=== PATIENT | male | born 1965 | race Caucasian/White ===

== ENCOUNTER 2016-12-31 07:32 | Emergency (ER) | payer OTHER ==
[~2016-12-31] VITALS: Ht 190.5 cm; Wt 132.4 kg
[2016-12-31 08:20] LABS: Basophils # (auto) 0 uL; Basophils % (auto) 0.2 % (0.0-2.0); CONDITION Y; Eosinophils # (auto) 0 uL; Eosinophils % (auto) 0.1 % (0.0-7.0); Hematocrit 44.9 % (41.0-53.0); Hemoglobin 15.3 g/dL (13.5-17.5); Mean Corpuscular Hemoglobin 29.6 pg (28.0-32.0); Mean Corpuscular Hgb Conc. 34.1 g/dL (32.0-36.0); Mean Corpuscular Volume 86.7 fL (80.0-100.0); Mean Platelet Volume 7.8 fL (7.4-10.4); Monocytes # (auto) 0.8 uL; Monocytes % (auto) 5.8 % (0.0-12.0); Neutrophils # (auto) 12.7 uL; Neutrophils % (auto) 86.9 % (37.0-80.0); Platelet Count (auto) 324 10^3/uL (140-450); Red Cell Distribution Width 14.9 % (11.6-16.0); White Blood Cell 14.6 10^3/uL (4.4-10.8)
[2016-12-31 09:08] LABS: Albumin 3.9 g/dL (3.4-5.0); Alkaline Phosphatase 87 U/L (45-117); Amylase 25 U/L (25-115); Anion Gap 10 (5-15); Aspartate Aminotransferase 8 U/L (15-37); BUN/Creatinine Ratio 12.9; Blood Urea Nitrogen 9 mg/dL (7-18); Calcium 8.7 mg/dL (8.5-10.1); Carbon Dioxide 22 mmol/L (21-32); Chloride 104 mmol/L (98-107); GFR African American 154 mL/min; GFR Non-African American 127 mL/min; Glucose 125 mg/dL (74-106); Potassium 3.7 mmol/L (3.5-5.1); Sodium 136 mmol/L (136-145); Total Protein 7.8 g/dL (6.4-8.2)
[2016-12-31] MEDS ORDERED: PROMETHAZINE HCL 25 MG/ML 1ML IV PRN (10:30)
[2016-12-31] MEDS ORDERED: NALBUPHINE HCL 10 MG/1ml INJECTION IV ONE ×2 (10:30→16:15)
[2016-12-31 11:21] LABS: Urine Bilirubin Negative (Negative); Urine Blood Negative /uL (Negative); Urine Color Yellow (Yellow); Urine Glucose Normal (Normal); Urine Ketone 2+ (Negative); Urine Mucus FEW (None Seen); Urine Nitrite Negative (Negative); Urine RBC 5 /hpf (0 - 3); Urine Urobilinogen Normal (Negative)
[2016-12-31] MEDS ORDERED: PROMETHAZINE HCL 25 MG/ML 1ML IV ONE (16:15)
[2016-12-31] MEDS ORDERED: SODIUM CHLORIDE 0.9% 1,000 ML IV ONE (16:30)
[2016-12-31 17:53] VITALS: BP 150/98
== END 2016-12-31 17:55 | disposition home or self-care (01) ==
LOC: ER 07:32
DX: G43.A0 Cyclical vomiting, in migraine, not intractable (principal); R10.84 Generalized abdominal pain; G89.29 Other chronic pain; F12.10 Cannabis abuse, uncomplicated
CPT/HCPCS: 36415; 80053; 81001; 82150; 84443; 84484; 85025; 93005; 96361; 96374; 96375; 96376; 99285; J2300; J2550